=== PATIENT | female | born 1960 | race Two or more races ===

== ENCOUNTER 2016-08-20 07:51 | Emergency (ER) | payer BC ==
[2016-08-20] MEDS ORDERED: LACTATED RINGERS 1,000 ML ONE ×2 (08:43→09:53)
[2016-08-20 08:44] LABS: URINE BILIRUBIN NEGATIVE (NEGATIVE); URINE BLOOD 2+ (NEGATIVE); URINE GLUCOSE (UA) NEGATIVE (NEGATIVE); URINE LEUKOCYTE ESTERASE TRACE (NEGATIVE); URINE NITRITE NEGATIVE (NEGATIVE); URINE PROTEIN 1+ (NEGATIVE); URINE UROBILINOGEN NORMAL (0-1 mg/dl)
[2016-08-20 08:50] LABS: URINE APPEARANCE HAZY; URINE COLOR DARK YELLOW
--- NOTE | 2016-08-20 08:53 | RAD ---
EXAMINATION:CHEST - 2 VIEWS CLINICAL INDICATION: Cough and fever COMPARISON:. None FINDINGS: The cardiomediastinal silhouette is within normal limits. There is no adenopathy identified. There is no pleural effusion. There is a right middle lobe pneumonia emanating from the right hilar distribution. Minimal atelectasis is suggested. The remainder the lungs are clear. The osseous structures are unremarkable for age. IMPRESSION: Right middle lobe pneumonia.
[2016-08-20 09:01] LABS: URINE BACTERIA 2+
[2016-08-20 09:02] LABS: URINE EPITHELIAL CELLS >10 /hpf
[2016-08-20 09:03] LABS: ALB/GLOB RATIO 1.4 (>1.0); ALBUMIN 3.8 gm/dL (3.5-5.7); CALCIUM 8.9 mg/dL (8.6-10.3)
[2016-08-20 09:04] LABS: ABSOLUTE NEUTROPHIL COUNT 31.2 K/mm3 (1.8-7.7); BASO # 0.1 K/mm3 (0.0-0.2); BASO % 0.3 % (0.2-1.0); HEMATOCRIT 42.8 % (37.0-47.0); HEMOGLOBIN 14.7 gm/l (12.0-16.0); IMM NEUT% 2.7 % (0-1); LYMPH % 2.7 % (15-45); MEAN CELL VOLUME 92.2 fl (81.0-99.0); MEAN CORPUSCULAR HEMOGLOBIN 31.7 pg (27.0-31.0); MEAN CORPUSCULAR HGB CONC 34.3 g/dl (33.0-37.0); MEAN PLATELET VOLUME 14.3 fl (7.4-10.4); MONO # 1.6 (0.0-0.8); MONO % 4.7 % (4-12); NEUT % 89.6 % (43-75); RED CELL DISTRIBUTION WIDTH 11.9 % (11.5-14.5)
[2016-08-20] MEDS ORDERED: CEFTRIAXONE SODIUM 1 G VIAL ONE (09:29)
[2016-08-20] MEDS ORDERED: KETOROLAC TROMETHAMINE 15 MG/ML VIAL ONE (09:30)
[2016-08-20] MEDS ORDERED: SODIUM CHLORIDE 0.9% 0 ML IV ONE (09:30)
[2016-08-20] MEDS ORDERED: POTASSIUM CHLORIDE 20 MEQ TAB.PRT.SR ONE (09:30)
[2016-08-20] MEDS ORDERED: NS 0.9% (MINI-BAG PLUS) 100 ML IV ONE (09:59)
[2016-08-20 10:30] LABS: BAND 20 % (0-10); LYMPHOCYTE 3 % (15-45); MONOCYTE 3 % (4-12); NEUTROPHILS 71 % (43-75); PLATELET COUNT 97 K/mm3 (130-400); TOTAL CELLS COUNTED 100
[2016-08-20 10:31] LABS: ATYPICAL LYMPHOCYTE 1 %; BASOPHIL 0 % (0-1); EOSINOPHIL 0 % (1-3); METAMYELOCYTE 2 %; PLATELET ESTIMATE DECREASED (NORMAL)
== END 2016-08-20 11:56 | disposition home or self-care (01) ==
LOC: ED 07:51
DX: J18.9 Pneumonia, unspecified organism (principal); E87.6 Hypokalemia; E86.0 Dehydration; I10 Essential (primary) hypertension; F17.210 Nicotine dependence, cigarettes, uncomplicated; Z79.899 Other long term (current) drug therapy
CPT/HCPCS: 83690; 85025; 80053; 81001; 71020; 96375; 99284 ×2; 96361; 96365; J0696; J1885; J7120 ×2; A9270